=== PATIENT | female | born 1965 | race Caucasian/White ===

== ENCOUNTER → 2019-05-21 10:23 | Outpatient (BNVA) | payer MEDICAID, SELFPAY | PROVIDERS: Family Provider Family Medicine; PCP Family Medicine; Visit Provider Anesthesiology | DX: G89.29 Other chronic pain (principal); M47.817 Spondylosis without myelopathy or radiculopathy, lumbosacral region; M47.812 Spondylosis without myelopathy or radiculopathy, cervical region; F17.210 Nicotine dependence, cigarettes, uncomplicated; Z79.891 Long term (current) use of opiate analgesic | CPT/HCPCS: 99214 ==

== ENCOUNTER → 2019-07-15 10:25 | Outpatient (BNVA) | payer MEDICAID, SELFPAY | PROVIDERS: Family Provider Family Medicine; PCP Family Medicine; Visit Provider Nurse Practitioner | DX: G89.29 Other chronic pain (principal); M47.812 Spondylosis without myelopathy or radiculopathy, cervical region; M47.817 Spondylosis without myelopathy or radiculopathy, lumbosacral region; F17.200 Nicotine dependence, unspecified, uncomplicated; Z71.6 Tobacco abuse counseling; Z79.891 Long term (current) use of opiate analgesic | CPT/HCPCS: 99214 ==

== ENCOUNTER → 2019-10-13 09:12 | Outpatient (BNVA) | payer MEDICAID, SELFPAY | PROVIDERS: Family Provider Family Medicine; PCP Family Medicine; Visit Provider Anesthesiology | DX: G89.29 Other chronic pain (principal); M54.41 Lumbago with sciatica, right side; M54.42 Lumbago with sciatica, left side; M47.817 Spondylosis without myelopathy or radiculopathy, lumbosacral region; M47.812 Spondylosis without myelopathy or radiculopathy, cervical region; F17.210 Nicotine dependence, cigarettes, uncomplicated; Z79.891 Long term (current) use of opiate analgesic | CPT/HCPCS: 99214 ==

== ENCOUNTER → 2019-12-23 10:42 | Outpatient (BNVA) | payer MEDICAID, SELFPAY | PROVIDERS: Family Provider Family Medicine; PCP Family Medicine; Visit Provider Anesthesiology | DX: G89.29 Other chronic pain (principal); M54.41 Lumbago with sciatica, right side; M54.42 Lumbago with sciatica, left side; M47.817 Spondylosis without myelopathy or radiculopathy, lumbosacral region; M47.812 Spondylosis without myelopathy or radiculopathy, cervical region; F17.210 Nicotine dependence, cigarettes, uncomplicated; Z79.891 Long term (current) use of opiate analgesic | CPT/HCPCS: 99214 ==

== ENCOUNTER 2019-12-30 15:02 | Outpatient (CLI) | payer MEDICAID, SELFPAY ==
--- NOTE | 2019-12-30 16:00 | MR_ITS ---
WS: [id number] EXAM: MR cervical spin wo con* [id number] DATE OF EXAMINATION: 12/30/2019, 1617 hours COMPARISON: CT of the cervical spine from 12/07/2008 and MRI of the cervical spine from 08/14/2017 HISTORY: 54-year-old with chronic neck pain. Now has pain in both arms with numbness at night for the last 6-1 2 months.. TECHNIQUE: Sagittal T1, T2 and T2 inversion recovery; axial T2, T2 gradient and fiesta FINDINGS: Skull base is intact. Cervical and upper thoracic vertebral bodies are normal height and marrow signa l characteristics. Predens space and prevertebral soft tissue plane are normal. No abnormal inflammat ory changes are seen on inversion recovery sequencing. Cervical and upper thoracic cord are normal ca liber and signal characteristics. C2-3: Minimal desiccation of the disc otherwise normal disc level C3-4: Minimal desiccation of disc otherwise normal disc level C4-5: Minimal desiccation the disc otherwise normal disc level C5-6: Minimal desiccation of the disc otherwise normal discs level C6-7: Degenerative spondylosis changes with bilateral uncovertebral joint hypertrophy changes with sl ight bony bar formation. Slightly effaces the anterior thecal sac. No canal or neural foraminal steno sis. Uncovertebral joint hypertrophy slightly narrows both neural foramen. C7-T1: Minimal desiccation of the disc otherwise normal discs level MR/MR cervical spin wo con* [id number] IMPRESSION: Progressive degenerative spondylosis changes C5-6 level with uncovertebral join t hypertrophy and posterior bony bar formation flattening the anterior thecal s ac and narrowing the neural foramina without stenosis. Remainder of the cervica l spine examination is otherwise fairly unremarkable
== END 2019-12-30 15:03 | disposition home or self-care (01) ==
LOC: RADSHAW 15:06
PROVIDERS: PCP Family Medicine; Visit Provider Anesthesiology
DX: G89.29 Other chronic pain (principal); M47.812 Spondylosis without myelopathy or radiculopathy, cervical region
CPT/HCPCS: 72141

== ENCOUNTER → 2020-01-20 07:55 | Outpatient (BNVA) | payer MEDICAID, SELFPAY | PROVIDERS: PCP Family Medicine; Visit Provider Anesthesiology | DX: G89.29 Other chronic pain (principal); M54.42 Lumbago with sciatica, left side; M54.41 Lumbago with sciatica, right side; M47.817 Spondylosis without myelopathy or radiculopathy, lumbosacral region; M47.812 Spondylosis without myelopathy or radiculopathy, cervical region; Z87.891 Personal history of nicotine dependence; Z79.891 Long term (current) use of opiate analgesic | CPT/HCPCS: 99214 ==

== ENCOUNTER → 2020-03-21 08:25 | Outpatient (BNVA) | payer MEDICAID, SELFPAY | PROVIDERS: PCP Family Medicine; Visit Provider Anesthesiology | DX: G89.29 Other chronic pain (principal); M54.41 Lumbago with sciatica, right side; M54.42 Lumbago with sciatica, left side; M47.817 Spondylosis without myelopathy or radiculopathy, lumbosacral region; M47.812 Spondylosis without myelopathy or radiculopathy, cervical region; F17.210 Nicotine dependence, cigarettes, uncomplicated; Z79.891 Long term (current) use of opiate analgesic | CPT/HCPCS: 99214 ==

== ENCOUNTER → 2020-05-17 08:10 | Outpatient (BNVA) | payer MEDICAID, SELFPAY | PROVIDERS: PCP Family Medicine; Visit Provider Nurse Practitioner | DX: G89.29 Other chronic pain (principal); M47.16 Other spondylosis with myelopathy, lumbar region; M47.817 Spondylosis without myelopathy or radiculopathy, lumbosacral region; M50.00 Cervical disc disorder with myelopathy, unspecified cervical region; M47.812 Spondylosis without myelopathy or radiculopathy, cervical region; F17.210 Nicotine dependence, cigarettes, uncomplicated; Z79.891 Long term (current) use of opiate analgesic | CPT/HCPCS: 99213 ==

== ENCOUNTER 2020-07-12 08:29 | Outpatient (CLI) | payer MEDICAID, SELFPAY ==
--- NOTE | 2020-07-12 09:00 | IR_ITS ---
WS: [id number] MYELOGRAM CERVICAL THORACIC AND LUMBAR SPINE Fluoroscopic guided complete spine myelogram CLINICAL INFORMATION: M54.5 - Low back pain TECHNIQUE: The procedure, including risks, benefits, and complications, were discussed with the patie nt who agreed to proceed. A timeout was performed to confirm correct patient, procedure, and site. Using sterile technique, the patient was prepped and draped in the usual sterile fashion. After admin istration of local anesthesia using 1% preservative-free lidocaine and using fluoroscopic guidance, a 22-gauge spinal needle was advanced into the subarachnoid space at the L3-L4 level. Subsequently 13 cc of Omnipaque 300 was administered into the thecal sac. The needle was removed and hemostasis was a chieved. Subsequently the table was tilted down and contrast flowed freely into the cervical spine. S pot fluoroscopic images were obtained. FLUOROSCOPIC TIME: 1.[address] myelogram report for anatomic detail. IR/IR myelogram spine total [id number] IMPRESSION: Uncomplicated cervical, thoracic, lumbar spine myelogram.
[2020-07-12] MEDS: iohexol 300 mg/mL 50 mL Btl INTRATHECA (09:52)
--- NOTE | 2020-07-12 11:00 | CT_ITS ---
WS: [id number] CT THORACIC SPINE MYELOGRAM TECHNIQUE: Contrast-enhanced CT of the thoracic spine with coronal and sagittal reformatted images. CLINICAL INFORMATION: M54.6 - Pain in thoracic spine COMPARISON: MRI 018, CT 017, and CT March 15, 2016. DLP: 1046.[address] scans at [facility] use at least one of these dose optimization techniques: automat ed exposure control; mA and/or kV adjustment per patient size (includes targeted exams where dose is matched to clinical indication); or iterative reconstruction. FINDINGS: Mild thoracic kyphosis. Mild spondylitic changes thoracic spine. No acute compression fractures. Mild degenerative disc disease in the mid thoracic spine more prominent at T4-T8. Mild chronic anterior w edging at T4, T5, T6 similar to previous. No significant central canal stenosis. Mild facet arthropat hy in the lower thoracic spine. Tiny central disc protrusion the mid thoracic spine at T7-8 with slight effacement of ventral thecal sac and slight contact of the thoracic cord eccentric to the right.. No significant central canal brianna nosis. Slight atelectasis in the lung bases. Adrenal glands are normal. Mild aortic calcification. Normal ca liber visualized thoracic aorta. Calcified mediastinal and hilar lymph nodes. CT/CT thoracic spine w con [id number] IMPRESSION: 1. Mild thoracic kyphosis. No acute compression fractures. 2. Mild chronic anterior wedging in the mid thoracic spine similar to the prio r studies more prominent at T4-T6. 3. Shallow central protrusion T7-T8 with slight effacement of ventral thecal s ac. Slight contact of the thoracic cord eccentric to the right. No significant central canal stenosis. 4. Mild facet arthropathy lower thoracic spine. 5. No other significant findings.
--- NOTE | 2020-07-12 11:00 | CT_ITS ---
WS: [id number] CT LUMBAR SPINE MYELOGRAM TECHNIQUE: CT myelogram of the lumbar spine with coronal and sagittal reformatted images. CLINICAL INFORMATION: M47.16 - Other spondylosis with myelopathy, lumbar region COMPARISON: CT 05/2017, MRI . DLP: 1878.[address] scans at [facility] use at least one of these dose optimization techniques: automat ed exposure control; mA and/or kV adjustment per patient size (includes targeted exams where dose is matched to clinical indication); or iterative reconstruction. FINDINGS: Mild lumbar curve convex left. No acute compression fractures. No high-grade central canal stenosis. Vacuum disc phenomenon L5-S1. L1-L2: Normal. L2-L3: Normal L3-L4: Mild annular bulging with slight effacement of ventral thecal sac. Left eccentric disc bulging with mild left foraminal narrowing. Slight narrowing of the subarticular recess bilaterally. Mild fa cet arthropathy. L4-L5: Mild annular bulging eccentric to the left. Slight narrowing of the left subarticular recess. Mild left foraminal narrowing. Right foramen is patent. Moderate facet arthropathy. L5-S1: Mild disc osteophytic ridging. Slight effacement of ventral thecal sac. Foramen are patent. Adrenal glands are normal. Aortic calcification. CT/CT lumbar spine w con [id number] IMPRESSION: 1. Mild lumbar curve. No acute compression. No high-grade central canal stenos is. 2. Mild annular bulging eccentric to the left with mild narrowing of the subar ticular recess bilaterally. Mild left L3-4 foraminal narrowing. 3. Left eccentric disc bulging L4-5 with mild left foraminal narrowing and enc roachment on the exiting left L4 nerve root. Slight impingement traversing left L5 nerve root in the subarticular recess. 4. Moderate facet arthropathy L3-L4 and L4-L5, worse L4-5.
--- NOTE | 2020-07-12 11:00 | CT_ITS ---
WS: [id number] CT CERVICAL MYELOGRAM TECHNIQUE: CT of the cervical spine coronal and sagittal reformatted images post intrathecal administ ration of contrast. CLINICAL INFORMATION: M50.00 - Cervical disc disorder with myelopathy, unspecified cervical region COMPARISON: Multiple prior CT and MRI studies including December 30, 2019, August 2017, August 2016, 2015, and November 2008. DLP: 1476.[address] scans at [facility] use at least one of these dose optimization techniques: automat ed exposure control; mA and/or kV adjustment per patient size (includes targeted exams where dose is matched to clinical indication); or iterative reconstruction. FINDINGS: Spot fluoroscopic images demonstrate normal C1-2 articulation. Mild spondylitic changes cervical spin e with trace retrolisthesis C5 on C6. Normal prevertebral soft tissues. No instability on flexion-ext ension in the cervical spine. Mild thoracic curve convex left. Mild thoracic kyphosis. Minimal chronic anterior wedging in the mid thoracic spine. Mild lumbar curve convex right. 5 nonrib-bearing lumbar vertebral bodies. Normal lumbar alignment on the neutral view. No instability on flexion-extension. C2-C3: No significant disc bulging. Spinal canal and foramen are patent. C3-C4: No significant disc bulging. Spinal canal and foramen are patent. C4-C5: Mild disc osteophytic ridging. Slight effacement of ventral thecal sac. Mild facet arthropathy . Mild left and no significant right foraminal narrowing. Spinal canal is patent. C5-C6: Mild disc osteophytic ridging. Spinal canal is patent. Mild left and no significant right fora juan josé narrowing. Mild facet arthropathy. C6-C7: Disc osteophyte complex with a small central disc osteophyte protrusion. Slight contact of the cervical cord with mild central canal stenosis. Mild bilateral bony foraminal narrowing. Mild facet arthropathy. C7-T1: No significant disc bulging. Spinal canal and foramen are patent. Visualized posterior fossa structures: Normal. CT/CT cervical spine w con [id number] IMPRESSION: 1. Mild spondylitic changes cervical spine with straightening of the normal ce rvical lordosis. 2. Small central disc osteophyte protrusion C6-C7 with slight contact of the c ervical cord and mild central canal stenosis. This is similar in appearance to the prior MRI December 2019. 3. Mild bony foraminal narrowing more prominent at left C4-C5, left C5-C6 and bilateral C6-7.
== END 2020-07-12 08:30 | disposition home or self-care (01) ==
LOC: RADWPI 08:31
PROVIDERS: PCP Family Medicine; Visit Provider Nurse Practitioner
DX: M50.00 Cervical disc disorder with myelopathy, unspecified cervical region (principal); M47.16 Other spondylosis with myelopathy, lumbar region; M40.294 Other kyphosis, thoracic region; M47.814 Spondylosis without myelopathy or radiculopathy, thoracic region; M51.24 Other intervertebral disc displacement, thoracic region; M48.54XA Collapsed vertebra, not elsewhere classified, thoracic region, initial encounter for fracture; M47.816 Spondylosis without myelopathy or radiculopathy, lumbar region; M51.26 Other intervertebral disc displacement, lumbar region; M25.78 Osteophyte, vertebrae; M50.223 Other cervical disc displacement at C6-C7 level
CPT/HCPCS: 62305; 72040; 72120; 72126; 72129; 72132; Q9967

== ENCOUNTER → 2020-07-14 08:40 | Outpatient (BNVA) | payer MEDICAID, SELFPAY | PROVIDERS: PCP Family Medicine; Visit Provider Nurse Practitioner | DX: G89.29 Other chronic pain (principal); M50.00 Cervical disc disorder with myelopathy, unspecified cervical region; M47.816 Spondylosis without myelopathy or radiculopathy, lumbar region; M47.16 Other spondylosis with myelopathy, lumbar region; M54.6 Pain in thoracic spine; M47.817 Spondylosis without myelopathy or radiculopathy, lumbosacral region; M47.812 Spondylosis without myelopathy or radiculopathy, cervical region; F17.210 Nicotine dependence, cigarettes, uncomplicated; Z79.891 Long term (current) use of opiate analgesic | CPT/HCPCS: 99215 ==

== ENCOUNTER → 2020-07-31 10:49 | Outpatient (BNVA) | payer MEDICAID, SELFPAY | PROVIDERS: PCP Family Medicine; Visit Provider Surgery | DX: Z01.812 Encounter for preprocedural laboratory examination (principal); Z20.828 Contact with and (suspected) exposure to other viral communicable diseases | CPT/HCPCS: 87635 ==

== ENCOUNTER 2020-08-03 06:48 | Day surgery (SDC) | payer MEDICAID, SELFPAY ==
[2020-08-01 12:13] VITALS: BMI 34.7
[2020-08-03] MEDS: sodium chloride 0.9% 1,000 ML 30 ML IV (07:34)
--- NOTE | 2020-08-03 07:42 | ANES.PREANE2 ---
Pre-Anesthetic Assessment Pre-Anesthetic Assessment: Height/Weight: Height 1.6 m Weight 88.904 kg Proposed Procedure: Operation Date: 08/03/20 08:00 Proposed Procedures p Colonoscopy 95456 34598 R19.8 Z86.010 Z83.71 K21.9 R10.13 K44.9 R12(Not Applicable) - Thom Gonzales MD s EGD 18221 32310 R19.8 Z86.010 Z83.71 K21.9 R10.13 K44.9 R12(Not Applicable) - Thom Gonzales MD Last intake: Intake Last Liquid Date 08/02/20 Last Liquid Time 19:00 Last Solid Date 08/01/20 Last Solid Time 21:00 Social: Social History: Tobacco and No alcohol Packs per day: 4 cigs weekly Exam: Pre-Anes Outpt Exam: alert, oriented x 3, clear to auscultation bilaterally and regular rate & rhythm Airway: Submandibular: WNL Cervical ROM: WNL MP: 2 Pulmonary: Pulmonary: COPD and Sleep apnea Comments: does not use her cpap CV/HEM: CV/HEM: Angina (Stable) and HTN : Comments: kidney cyst hx kidney stones GI: GI: GERD and Hiatus hernia Metabolic: Metabolic: Hyperlipidemia and Morbid obesity Musc/skel: Musc/skel: Fibromyalgia, Lower Back Pain, OA/DJD, Scoliosis and Weakness Neuropsych: Neuropsych: Anxiety, Depression and Neuropathy Anesthetic Plan: ASA status: 3 Anesthesia: Anesthesia Evaluation and MAC Risk of > 500 ml blood loss (7ml/kg in children): No Meds/Allergies Current Medications: Current Medications Generic Name Dose Route Start Last Admin Trade Name Freq PRN Reason Stop Dose Admin Sodium Chloride 1,000 mls @ 30 ml s/hr 08/03/20 07:15 08/03/20 07:34 Sodium Chloride 0.9% IV 30 mls/hr .Q24H KASIA Administration PFSH Anesthesia PFSH: Medical History (Updated 07/14/20 @ 09:45 by CHAI Rouse) Current every day smoker Encounter for long-term use of opiate analgesic Lumbosacral spondylosis without myelopathy Neck pain Opioid contract exists Spondylosis without myelopathy or radiculopathy, cervical region Surgical History H/O tubal ligation History of appendectomy History of hysterectomy Family History Other CAD (coronary artery disease) Cancer Diabetes Social History Smoking and tobacco status: current some day smoker Second hand smoke exposure: No Alcohol intake: former History of recent travel: No Data Anesthesia Cardiac Studies: No Data to Display
--- NOTE | 2020-08-03 08:03 | P.HPUD_ITS ---
Surgery/Procedure H&P Update DATE OF PROCEDURE: August 03, 2020 DATE H&P PERFORMED: 07/25/20 H&P UPDATE INFORMATION: No changes to prior documentation PLANNED PROCEDURE: Operation Date: 08/03/20 08:00 Proposed Procedures p Colonoscopy 77140 37275 R19.8 Z86.010 Z83.71 K21.9 R10.13 K44.9 R12(Not Applicable) - Thom Gonzales MD s EGD 08279 04941 R19.8 Z86.010 Z83.71 K21.9 R10.13 K44.9 R12(Not Applicable) - Thom Gonzales MD
--- NOTE | 2020-08-03 08:03 | W.PM.OPSUD ---
Surgery/Procedure H&P Update DATE OF PROCEDURE: August 03, 2020 DATE H&P PERFORMED: 07/25/20 H&P UPDATE INFORMATION: No changes to prior documentation PLANNED PROCEDURE: Operation Date: 08/03/20 08:00 Proposed Procedures p Colonoscopy 45768 83461 R19.8 Z86.010 Z83.71 K21.9 R10.13 K44.9 R12(Not Applicable) - Thom Gonzales MD s EGD 46609 50266 R19.8 Z86.010 Z83.71 K21.9 R10.13 K44.9 R12(Not Applicable) - Thom Gonzales MD
[2020-08-03 08:32] VITALS: BP 142/82; PULSE 80; RESP 16; TEMP 36.8; O2SAT 98
[2020-08-03 08:53] VITALS: BP 167/95; PULSE 62; RESP 18; O2SAT 100
--- NOTE | 2020-08-03 20:45 | ANE.PACU2 ---
Inpatient post-anesthesia follow up: Airway intact: Yes Vital signs: Temperature 98.2 F Pulse Rate 62 Respiratory Rate 18 Blood Pressure 167/95 Pulse Oximetry 100 Oxygen Delivery Me thod Room Air Oxygen Flow Rate Fraction of Inspir ed Oxygen Hydration adequate: Yes Nausea and vomiting: No Pain level: 1 Mental status: Baseline
[2020-08-04 13:48] LABS: H. Pylori / CLO Test Negative
== END 2020-08-03 09:07 | disposition home or self-care (01) ==
PROVIDERS: PCP Family Medicine; Visit Provider Surgery
PROC: 0DJD8ZZ Inspection of Lower Intestinal Tract, Via Natural or Artificial Opening Endoscopic (ICD-10-PCS; CPT 45378; principal; 2020-08-03 08:00)
PROC: 0DJ08ZZ Inspection of Upper Intestinal Tract, Via Natural or Artificial Opening Endoscopic (ICD-10-PCS; CPT 43235; 2020-08-03 08:00)
DX: K64.8 Other hemorrhoids (principal); K44.9 Diaphragmatic hernia without obstruction or gangrene; K29.80 Duodenitis without bleeding; K92.1 Melena; Z80.0 Family history of malignant neoplasm of digestive organs; Z86.010 Personal history of colon polyps; K21.9 Gastro-esophageal reflux disease without esophagitis; M19.90 Unspecified osteoarthritis, unspecified site; J44.9 Chronic obstructive pulmonary disease, unspecified; M79.7 Fibromyalgia; I10 Essential (primary) hypertension; M81.0 Age-related osteoporosis without current pathological fracture; G47.30 Sleep apnea, unspecified; F17.210 Nicotine dependence, cigarettes, uncomplicated; Z83.71 Family history of colonic polyps
CPT/HCPCS: 12345; 43239; 45378; 87077; 96360; J2704; J3490; J7030

== ENCOUNTER → 2020-08-07 12:43 | Outpatient (BNVA) | payer MEDICAID, SELFPAY | PROVIDERS: PCP Family Medicine; Visit Provider Anesthesiology Pain Medicine | DX: M47.816 Spondylosis without myelopathy or radiculopathy, lumbar region (principal); M54.6 Pain in thoracic spine; Z79.891 Long term (current) use of opiate analgesic | CPT/HCPCS: 64493; 64494; 64495; J3490 ==

== ENCOUNTER → 2020-08-11 08:03 | Outpatient (BNVA) | payer MEDICAID, SELFPAY | PROVIDERS: PCP Family Medicine; Visit Provider Nurse Practitioner | DX: G89.29 Other chronic pain (principal); M47.16 Other spondylosis with myelopathy, lumbar region; M47.816 Spondylosis without myelopathy or radiculopathy, lumbar region; M54.6 Pain in thoracic spine; M47.817 Spondylosis without myelopathy or radiculopathy, lumbosacral region; M50.00 Cervical disc disorder with myelopathy, unspecified cervical region; M47.812 Spondylosis without myelopathy or radiculopathy, cervical region; F17.210 Nicotine dependence, cigarettes, uncomplicated; Z79.891 Long term (current) use of opiate analgesic; Z71.6 Tobacco abuse counseling | CPT/HCPCS: 99214 ==

== ENCOUNTER → 2020-08-21 14:21 | Outpatient (BNVA) | payer MEDICAID, SELFPAY | PROVIDERS: PCP Family Medicine; Visit Provider Anesthesiology Pain Medicine | DX: M47.816 Spondylosis without myelopathy or radiculopathy, lumbar region (principal); M54.6 Pain in thoracic spine; F17.210 Nicotine dependence, cigarettes, uncomplicated; Z79.891 Long term (current) use of opiate analgesic | CPT/HCPCS: 64635; 64636; J1030 ==

== ENCOUNTER → 2020-10-17 08:44 | Outpatient (BNVA) | payer MEDICAID, SELFPAY | PROVIDERS: PCP Family Medicine; Visit Provider Nurse Practitioner | DX: G89.29 Other chronic pain (principal); M47.16 Other spondylosis with myelopathy, lumbar region; M47.816 Spondylosis without myelopathy or radiculopathy, lumbar region; M47.817 Spondylosis without myelopathy or radiculopathy, lumbosacral region; M54.6 Pain in thoracic spine; M50.00 Cervical disc disorder with myelopathy, unspecified cervical region; M47.812 Spondylosis without myelopathy or radiculopathy, cervical region; F17.210 Nicotine dependence, cigarettes, uncomplicated; Z79.891 Long term (current) use of opiate analgesic; Z71.6 Tobacco abuse counseling | CPT/HCPCS: 99214 ==

== ENCOUNTER → 2020-11-14 08:54 | Outpatient (BNVA) | payer MEDICAID, SELFPAY | PROVIDERS: PCP Family Medicine; Visit Provider Nurse Practitioner | DX: G89.29 Other chronic pain (principal); M47.16 Other spondylosis with myelopathy, lumbar region; M47.816 Spondylosis without myelopathy or radiculopathy, lumbar region; M54.6 Pain in thoracic spine; M47.817 Spondylosis without myelopathy or radiculopathy, lumbosacral region; M50.00 Cervical disc disorder with myelopathy, unspecified cervical region; M47.812 Spondylosis without myelopathy or radiculopathy, cervical region; F17.210 Nicotine dependence, cigarettes, uncomplicated; Z79.891 Long term (current) use of opiate analgesic; Z71.6 Tobacco abuse counseling | CPT/HCPCS: 99213; 99214; 99406 ==

== ENCOUNTER → 2021-01-16 08:52 | Outpatient (BNVA) | payer MEDICAID, SELFPAY | PROVIDERS: PCP Family Medicine; Visit Provider Nurse Practitioner | DX: G89.29 Other chronic pain (principal); M47.16 Other spondylosis with myelopathy, lumbar region; M47.816 Spondylosis without myelopathy or radiculopathy, lumbar region; M47.817 Spondylosis without myelopathy or radiculopathy, lumbosacral region; M50.00 Cervical disc disorder with myelopathy, unspecified cervical region; M50.90 Cervical disc disorder, unspecified, unspecified cervical region; M47.812 Spondylosis without myelopathy or radiculopathy, cervical region; M54.6 Pain in thoracic spine; F17.200 Nicotine dependence, unspecified, uncomplicated; Z79.891 Long term (current) use of opiate analgesic; Z71.6 Tobacco abuse counseling | CPT/HCPCS: 99214 ==

== ENCOUNTER 2021-02-14 08:23 | Outpatient (CLI) | payer MEDICAID, SELFPAY ==
--- NOTE | 2021-02-14 08:00 | MR_ITS ---
WS: [id number] MRI CERVICAL SPINE NONCONTRAST HISTORY: M50.90 - Cervical disc disorder, unspecified, unspecified... COMPARISON: 12/30/2019 Technique: Multiplanar, multisequence noncontrast imaging of the cervical spine. Normal cervical alignment with no compression fracture or significant disc space narrowing. Signal within the cervical cord is normal. Visualized posterior fossa is unremarkable. Craniocervical junction, C1 and C2 relationship, odontoid process and soft tissues are normal. C2-C3: Normal. C3-C4: Small LEFT foraminal osteophyte without significant stenosis. C4-C5: Minimal hypertrophic osteophytes in the foramen with no stenosis. C5-C6: Normal. C6-C7: Mild annular disc bulging with mild hypertrophic osteophyte formation. There is mild encroachm ent upon the ventral thecal sac and mild narrowing of the foramen. Similar to the prior study with no change. C7-T1: Normal. Paraspinal soft tissue are normal. MR/MR cervical spin wo con* [id number] IMPRESSION: 1. Mild central and bilateral foraminal stenosis at C6-7 due to mild disc and hypertrophic bone formation. Similar to the prior examination with no progressi on or severe stenosis. 2. Small LEFT foraminal osteophytes at C3-4 and C4-5 without stenosis.
--- NOTE | 2021-02-14 08:45 | MR_ITS ---
WS: [id number] MRI LUMBAR SPINE NONCONTRAST HISTORY: M47.16 - Other spondylosis with myelopathy, lumbar region COMPARISON: 08/14/2017 TECHNIQUE: Sagittal and axial multisequence imaging is submitted. Normal lumbar alignment with no compression fractures or marrow edema. Very minimal disc desiccation but the heights are preserved. No fractures. Conus terminates normally at L1-2 disc level. L1-L2: Normal. L2-L3: No stenosis. Minimal ligamentum flavum hypertrophy. Small annular fissure in the far lateral L EFT disc. L3-L4: Mild annular disc bulge is slightly asymmetric to the LEFT. Similar to the prior study. There is mild bilateral facet joint encroachment into the lateral recess and foramen. No significant stenos is. No nerve root contact is evident. Mild facet arthritis. L4-L5: Mild annular disc bulging with a LEFT foraminal fissure. Mild ligamentum flavum hypertrophy an d facet arthritis. Disc slightly contacts the traversing L5 nerve roots, greatest on the LEFT but no displacement. Similar to the prior study. Mild bilateral foraminal narrowing predominantly due to fac et arthritis. No significant stenosis or progression. L5-S1: Mild annular disc bulging. No stenosis. Very mild facet joint arthritis. MR/MR lumbar spine wo con* [id number] IMPRESSION: 1. No high-grade central or foraminal stenosis or disc protrusions. 2. Mild bilateral facet joint arthritis from L3-4 to L5-S1 with only mild prog ression since the prior study. 3. Mild asymmetric disc bulging to the LEFT at L3-4 with mild encroachment int o the LEFT foramen. 4. Disc bulging slightly contacts the traversing L5 nerve roots without stenos is or displacement. 5. Mild bilateral foraminal narrowing at L4-5.
== END 2021-02-14 08:24 | disposition home or self-care (01) ==
LOC: RADSHAW 08:27
PROVIDERS: PCP Family Medicine; Visit Provider Nurse Practitioner
DX: M50.90 Cervical disc disorder, unspecified, unspecified cervical region (principal); M47.16 Other spondylosis with myelopathy, lumbar region; M47.817 Spondylosis without myelopathy or radiculopathy, lumbosacral region; M51.26 Other intervertebral disc displacement, lumbar region
CPT/HCPCS: 72141; 72148

== ENCOUNTER → 2021-03-16 08:44 | Outpatient (BNVA) | payer MEDICAID, SELFPAY | PROVIDERS: PCP Family Medicine; Visit Provider Anesthesiology | DX: G89.29 Other chronic pain (principal); M50.00 Cervical disc disorder with myelopathy, unspecified cervical region; M47.812 Spondylosis without myelopathy or radiculopathy, cervical region; M47.16 Other spondylosis with myelopathy, lumbar region; M47.816 Spondylosis without myelopathy or radiculopathy, lumbar region; M54.6 Pain in thoracic spine; M47.817 Spondylosis without myelopathy or radiculopathy, lumbosacral region; Z79.891 Long term (current) use of opiate analgesic | CPT/HCPCS: 99213 ==

== ENCOUNTER → 2021-05-16 09:32 | Outpatient (BNVA) | payer MEDICAID, SELFPAY | PROVIDERS: PCP Family Medicine; Visit Provider Anesthesiology | DX: G89.29 Other chronic pain (principal); M47.16 Other spondylosis with myelopathy, lumbar region; M47.816 Spondylosis without myelopathy or radiculopathy, lumbar region; M54.6 Pain in thoracic spine; M47.817 Spondylosis without myelopathy or radiculopathy, lumbosacral region; M50.00 Cervical disc disorder with myelopathy, unspecified cervical region; M47.812 Spondylosis without myelopathy or radiculopathy, cervical region; Z79.891 Long term (current) use of opiate analgesic; Z87.891 Personal history of nicotine dependence | CPT/HCPCS: 99214 ==

== ENCOUNTER 2021-09-04 12:48 | Outpatient (CLI) | payer MEDICAID, SELFPAY ==
--- NOTE | 2021-09-04 13:07 | USCV_ITS ---
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 Dr Lily Field MD [facility] (Electronically Signed) Final Date: 09 Sep 2021 21:07 S
== END 2021-09-04 12:49 | disposition home or self-care (01) ==
LOC: RAD 12:51
PROVIDERS: PCP Family Medicine; Visit Provider Family Medicine
DX: I73.9 Peripheral vascular disease, unspecified (principal)
CPT/HCPCS: 93922

== ENCOUNTER 2021-12-03 08:00 | Outpatient (CLI) | payer MEDICAID, SELFPAY ==
--- NOTE | 2021-12-03 | MR_ITS ---
WS: [id number] MRI LUMBAR SPINE NONCONTRAST TECHNIQUE: Sagittal T1, T2 and STIR imaging. Axial T1 and T2 imaging. CLINICAL INFORMATION: RADICULAR LOW BACK PAIN COMPARISON: MRI February 14, 2021 FINDINGS: Mild lumbar curve. No acute compression. No high-grade central canal stenosis. L1-L2: Normal. L2-L3: Mild annular bulging. Spinal canal and foramen are patent. L3-L4: Mild annular bulging. Narrowing of the subarticular recess bilaterally. Mild facet arthropath y. Tiny annular fissure. Mild LEFT foraminal narrowing. Mild facet arthropathy. L4-L5: Mild annular bulging. Slight narrowing of the subarticular recess bilaterally. Small annular f issures at this level. Mild bilateral foraminal narrowing. Mild facet arthropathy. L5-S1: Mild annular bulging with osteophytic ridging. Mild facet arthropathy. Spinal canal and forame n are patent. Small bilateral renal cysts. MR/MR lumbar spine wo con* [id number] IMPRESSION: Overall no significant changes compared to previous. 1. Mild lumbar curve. No acute compression. No high-grade central canal stenos is. 2. Mild narrowing subarticular recess bilaterally L3-L4 and L4-L5 unchanged co mpared to previous. 3. Mild facet arthropathy L3-L4 L4-L5. 4. Mild LEFT L3-L4 foraminal narrowing unchanged. 5. Mild bilateral L4-L5 bony foraminal narrowing unchanged.
== END 2021-12-03 08:01 | disposition home or self-care (01) ==
PROVIDERS: PCP Family Medicine; Visit Provider Family Medicine
DX: M54.16 Radiculopathy, lumbar region (principal); M47.816 Spondylosis without myelopathy or radiculopathy, lumbar region
CPT/HCPCS: 72148

== ENCOUNTER → 2021-12-19 12:18 | Outpatient (BNVA) | payer MEDICAID, SELFPAY | PROVIDERS: PCP Family Medicine; Visit Provider Internal Medicine Cardiovascular Disease | DX: R07.9 Chest pain, unspecified (principal); I10 Essential (primary) hypertension; M19.90 Unspecified osteoarthritis, unspecified site; M47.817 Spondylosis without myelopathy or radiculopathy, lumbosacral region; M47.812 Spondylosis without myelopathy or radiculopathy, cervical region; Z79.891 Long term (current) use of opiate analgesic; F17.210 Nicotine dependence, cigarettes, uncomplicated | CPT/HCPCS: 93005; 99203; 99204 ==

== ENCOUNTER 2022-02-21 07:19 | Outpatient (CLI) | payer MEDICAID, SELFPAY ==
--- NOTE | 2022-02-21 07:57 | NMCV_ITS ---
NM kedar perf SPECT r/s* [id number] Mehnaz Martínez Age: 56 Gender: F : 1965 Exam Date: 02/21/2022 07:57 Ordering Phys: Tiffanie Richards MD ([email or web address]) Technologist: JACINDA Nayak Exam Location: [facility] Indications: CHEST PAIN STRESS TEST Please see separate stress test report in [facility] for full findings IMAGE PROTOCOL Rest/Stress 1 Lexiscan Day Radiopharmaceutical Dose (mCi) Administration Site Administered by Rest: Tc-99m 10.7 IV JACINDA Bailey Sestamibi Stress:Tc-99m 32.8 IV JACINDA Bailey Sestamibi Rest: 21-Feb-2022 60 Discovery 630 Stress: 21-Feb-2022 30 Discovery 630 0.4mg Lexiscan. Images obtained in supine and prone position. SPECT RESULTS Technical Quality: Excellent Raw Data Analysis: Normal Image Corrections: No attenuation or motion correction applied Summed Stress Score: 0 Summed Rest Score: 0 Summed Difference Score: 0 PERFUSION FINDINGS SPECT images demonstrate homogeneous tracer distribution throughout the myocardium. FUNCTIONAL RESULTS (calculated via Gated SPECT) Stress Image LV EF (%): 71 Stress EDV (mL):79 TID: 0.86 Stress ESV (mL):23 FUNCTIONAL FINDINGS: The left ventricle is normal in size. Transient Ischemia Dilatation of 0.86. There is normal left ventricular systolic function. The left ventricular ejection fraction is normal with a value of 71%. There is normal left ventricular wall thickening. Normal end-diastolic and end-systolic volumes. IMPRESSIONS 1. Myocardial perfusion imaging is normal. 2. Overall left ventricular systolic function is normal without regional wall motion abnormalities, LVEF=71%. 3. EKG portion of the study will be reported separately. Tiffanie Richards MD (Electronically Signed) Final Date: 25 February 2022 13:45 S
[2022-02-21 08:01] VITALS: BMI 34.7
[2022-02-21] MEDS: regadenoson 0.4 Mg/5 ml Syringe IVP (09:50)
[2022-02-21] MEDS: ondansetron 2 mg/ML SDV 2 mL 4 MG IVP (10:06)
== END 2022-02-21 07:20 | disposition home or self-care (01) ==
LOC: CDL 07:21
PROVIDERS: PCP Family Medicine; Visit Provider Internal Medicine Cardiovascular Disease
DX: R07.9 Chest pain, unspecified (principal)
CPT/HCPCS: 78452; A9500; J2405; J2785

== ENCOUNTER 2022-04-15 11:39 | Emergency (ER) | payer MEDICAID, SELFPAY ==
[2022-04-15 11:48] VITALS: BP 128/80; PULSE 97; RESP 16; TEMP 36.5; O2SAT 100
--- NOTE | 2022-04-15 12:34 | XR_ITS ---
WS: [id number] EXAMINATION: XR chest 1V portable [id number] REASON FOR EXAM: sob COMPARISON: None available. ORDER DATE: 04/15/2022 1:08 PM TECHNIQUE: A single, portable frontal chest x-ray was obtained. X-RAY FINDINGS: The lungs are clear. Pleural spaces are clear. No pleural effusions or pneumothorax. Cardiomediastinal silhouette is normal. No evidence for pulmonary edema. Soft tissue and osseous structures are unremarkable. No tubes or lines are present. XR/XR chest 1V portable [id number] IMPRESSION: Unremarkable frontal portable chest x-ray.
--- NOTE | 2022-04-15 14:05 | W.ED.SOB ---
HPI - SOB/Dyspnea General: Chief Complaint: Shortness of Breath/Dyspnea Stated Complaint: SOB Time Seen by Provider: 04/15/22 14:05 History of Present Illness: HPI Narrative: Ms. Martínez is a 56-year-old lady with significant past medical history of hypertension, hyperlipidemia, chronic pain, COPD presenting to the emergency department due to cough and shortness of breath. She reports onset of symptoms approximately 2 weeks ago and was initially previously treated for COPD exacerbation with steroids and doxycycline though felt improved. Over the past 4 days, since completing the antibiotics, she has worsened. Endorses shortness of breath, cough, congestion, generalized malaise, sweats, and subjective fevers and chills. Intensity symptoms is moderate. Course has persisted. Worse with exertion. No other specific changes in health, exacerbating, or alleviating factors identified. Onset (ago): week(s) Timing: progressively worsening Severity: moderate Exacerbating factors: exertion Known history of: COPD Associated symptoms: Reports chest congestion, cough and fever(s) Review of Systems General: Reports: 10 or more systems reviewed and unremarkable except in HPI and below Const: Reports: fever(s) Resp: Reports: chest congestion PFSH ED PFSH: Medical History DJD (degenerative joint disease) Encounter for long-term use of opiate analgesic Fibromyalgia GERD (gastroesophageal reflux disease) HTN (hypertension) Lumbosacral spondylosis without myelopathy Neck pain Opioid contract exists PTSD (post-traumatic stress disorder) Spondylosis without myelopathy or radiculopathy, cervical region Surgical History H/O tubal ligation History of appendectomy History of hysterectomy S/P nasal polypectomy Family History Father , [place] 33 y/o Myocardial infarct Stroke Hypertension Brother Myocardial infarct S/P CABG x 3 Diabetes Family/Other Murmur, cardiac Hypertension Diabetes Other CAD (coronary artery disease) Cancer Social History Smoking and tobacco status: current some day smoker cigarettes [ Other cigarette details: 2 cigs per day] Second hand smoke exposure: No Alcohol intake: former History of recent travel: No Physical Exam Const: COMMON NORMALS: alert GENERAL APPEARANCE: cooperative and well developed HENMT: COMMON NORMALS: normocephalic and atraumatic HEAD & SCALP: normocephalic and atraumatic THROAT: posterior oropharynx normal Eye: COMMON NORMALS: conjunctivae normal CONJUNCTIVA: Yes conjunctivae normal SCLERA: sclerae normal Neck/C-Spine: COMMON NORMALS: supple GENERAL: Yes trachea midline Resp: EFFORT & INSPECTION: Yes able to speak in complete sentences AUSCULTATION: wheezes and diminished lung sounds Cardio: COMMON NORMALS: regular rate and regular rhythm RATE: regular rate RHYTHM: regular rhythm GI: COMMON NORMALS: Soft to palpation PALPATION: Yes Soft to palpation and No Tenderness to palpation present (GI) PERCUSSION: normal to percussion Extremity: GENERAL: Yes normal exam except as noted and No edema Neuro: COMMON NORMALS: moves all extremities SENSORIUM/ORIENTATION: Yes alert and No Orientation impaired Psych: COMMON NORMALS: mental status grossly normal and Normal thought process present THOUGHT PROCESS: Normal thought process present Course Vital Signs: Vital signs: Vital Signs Temperature 97.7 F 04/15/22 11:48 Pulse Rate 94 04/15/22 18:21 Respiratory Rate 16 04/15/22 18:21 Blood Pressure 136/92 04/15/22 18:21 Pulse Oximetry 98 04/15/22 18:21 Oxygen Delivery Me thod 04/15/22 17:34 MDM - SOB/Dyspnea Medical Decision Making 56-year-old lady presenting with shortness of breath and cough. Exam as above, not requiring supplemental oxygen. EKG shows sinus rhythm with nonspecific ST segment abnormalities, no STEMI. No significant hematologic abnormalities on laboratory studies, electrolytes normal with minimal decrease in bicarb and anion gap increase. 2-hour delta troponin is negative. D-dimer elevated. Chest x-ray with no lobar consolidation or pneumothorax. CTA chest without evidence of pulmonary embolism. Incidental findings discussed. Patient feels improved with RT treatment. Most likely etiology of patient's symptoms is exacerbation of underlying COPD. The results of ED evaluation were discussed with the patient including prescriptions and/or symptomatic cares (if applicable) including appropriate and responsible use, followup plan, and return precautions. The patient verbalized understanding and felt safe for discharge. Medical Records I reviewed the patient's medical records. Lab Data I reviewed the patient's lab results. 04/15/22 14:25 04/15/22 14:25 Labs/Radiology: Radiology Impressions Chest X-Ray 04/15/22 12:34 IMPRESSION: Unremarkable frontal portable chest x-ray. Chest CTA 04/15/22 16:45 IMPRESSION: No evidence of pulmonary embolism. Laboratory Results WBC 7.6 10^3/uL (4.0-10.0) 04/15/22 14:25 RBC 4.72 10^6/uL (4.1-5.3) 04/15/22 14:25 Hgb 14.3 g/dL (11.5-15.3) 04/15/22 14:25 Hct 43.5 % (37.0-47.0) 04/15/22 14:25 MCV 92.2 fl (81-99) 04/15/22 14:25 MCH 30.3 pg (28.0-34.0) 04/15/22 14:25 MCHC 32.9 g/dL (30.0-36.0) 04/15/22 14:25 RDW 13.4 % (12.1-15.1) 04/15/22 14:25 Plt Count 325 10^3/cmm (130-400) 04/15/22 14:25 MPV 9.7 fL (7.4-10.4) 04/15/22 14:25 Neut % (Auto) 52.3 % 04/15/22 14:25 Lymph % (Auto) 35.1 % 04/15/22 14:25 Walker % (Auto) 11.1 % 04/15/22 14:25 Eos % (Auto) 0.3 % 04/15/22 14:25 Baso % (Auto) 0.5 % 04/15/22 14:25 Neut # (Auto) 3.95 10^3/uL (1.8-7.7) 04/15/22 14:25 Lymph # (Auto) 2.7 10^3/uL (0.8-4.8) 04/15/22 14:25 Walker # (Auto) 0.8 10^3/uL (0.2-0.9) 04/15/22 14:25 Eos # (Auto) 0.0 10^3/uL (0.0-0.8) 04/15/22 14:25 Baso # (Auto) 0.0 10^3/uL (0.0-0.1) 04/15/22 14:25 Nucleated RBC % (auto) 0 % 04/15/22 14:25 Nucleated RBCs # 0.0 /100WBC 04/15/22 14:25 D-Dimer 0.85 ug/mIFEU (0-0.59) H 04/15/22 14:25 Sodium 136 mmol/L (136-145) 04/15/22 14:25 Potassium 3.8 mmol/L (3.5-5.1) 04/15/22 14:25 Chloride 100 mmol/L (98-107) 04/15/22 14:25 Carbon Dioxide 20 mmol/L (22-29) L 04/15/22 14:25 Anion Gap 19.8 (5-19) H 04/15/22 14:25 BUN 15 mg/dL (6-20) 04/15/22 14:25 Creatinine 0.8 mg/dL (0.5-0.9) 04/15/22 14:25 GFR Calculation 73.9 mL/min (90-130) L 04/15/22 14:25 Glucose 93 mg/dL (65-115) 04/15/22 14:25 Calculated Osmolality 283 mOsm/kg (285-295) L 04/15/22 14:25 Calcium 9.6 mg/dL (8.5-10.5) 04/15/22 14:25 Total Bilirubin 0.3 mg/dL (0.15-1.2) 04/15/22 14:25 AST 22 U/L (0-32) 04/15/22 14:25 ALT 29 U/L (0-33) 04/15/22 14:25 Alkaline Phosphatase 73 U/L (35-105) 04/15/22 14:25 Troponin T Baseline 7 ng/L (0-10) 04/15/22 14:25 Troponin T 120 Minute 6.00 ng/L (0-10) 04/15/22 16:58 Delta Troponin T -1.0 ABS# (0-10) L 04/15/22 16:58 NT-Pro-B Natriuret Pep 5 pg/mL (0-125) 04/15/22 14:25 Total Protein 7.3 g/dL (6.6-8.7) 04/15/22 14:25 Albumin 4.3 g/dL (3.5-5.2) 04/15/22 14:25 Globulin 3.0 g/dL (1.3-4.6) 04/15/22 14:25 Discharge Plan Discharge Patient Disposition: Home Clinical Impression: Acute exacerbation of chronic obstructive airways disease Condition: Stable Prescriptions: New amoxicillin-pot clavulanate 875-125 mg tablet 1 tab PO BID Qty: 20 0RF albuterol sulfate 2.5 mg /3 mL (0.083 %) solution for nebulization 2.5 mg inhalation Q4H PRN (Reason: shortness of breath or wheezing) Qty: 90 0RF (DME) nebulizers Misc See Rx Instructions .ROUTE Qty: 1 0RF Rx Instructions: As directed No Action Combivent Respimat 20-100 mcg/actuation mist 1 puff INHALATION QID Flovent HFA 110 mcg/actuation HFA aerosol inhaler 2 puff INHALATION BID pantoprazole [Protonix] 40 mg tablet,delayed release (DR/EC) 40 mg PO BID lisinopril 10 mg tablet 10 mg PO DAILY lidocaine [Lidocaine Pain Relief] 4 % adhesive patch,medicated 1 patch topical BID PRN (Reason: Pain) promethazine-DM 6.25-15 mg/5 mL syrup 10 ml PO Q6H PRN (Reason: Cough) tizanidine 4 mg tablet 6 mg PO QID PRN (Reason: Pain) ondansetron HCl 4 mg tablet 4 mg PO BID PRN (Reason: Nausea And Vomiting) hydrocodone-acetaminophen 10-325 mg tablet 1 tab PO QID PRN (Reason: Pain) Airborne Gummy 250-11.66 mg Tablet,Chewable 1 tab PO DAILY Discharge Orders: Discharge ED (Routine); Ordered 04/15/22 Ordered By: Forest Aviles Referrals: Valdo Alves MD [Primary Care Provider] - Discharge Diet: Usual diet Discharge Activity: Increase activity as tolerated Patient Instructions: COPD (Chronic Obstructive Pulmonary Disease) (ED), How to Use a Nebulizer (ED) Activity Restrictions/Additional Instructions: Thank you for visiting the emergency department. You were seen and evaluated for shortness of breath and cough. The exact cause of your symptoms is unclear though likely related to flareup of underlying lung disease. I will prescribe steroids. Please also use your albuterol nebulizer 1 treatment every 4 hours for 24 hours followed by 1 treatment every 6 hours for 24 hours followed by 1 treatment every 8 hours for 24 hours and then return to the normal schedule. Please follow-up with your primary care provider. Return to the emergency department for worsening symptoms or anything else that you are concerned about a feel needs emergency department evaluation. Coding Level of Care Code ED Furniture Dipper for Felicitas Cesar
[2022-04-15 14:33] LABS: Basophils % 0.5 %; Eosinophils % 0.3 %; Hematocrit 43.5 % (37.0-47.0); Hemoglobin 14.3 g/dL (11.5-15.3); Lymphocytes # 2.7 10^3/uL (0.8-4.8); Lymphocytes % 35.1 %; Mean Corpuscular HGB Conc 32.9 g/dL (30.0-36.0); Mean Corpuscular Hemoglobin 30.3 pg (28.0-34.0); Mean Corpuscular Volume 92.2 fl (81-99); Mean Platelet Volume 9.7 fL (7.4-10.4); Monocytes # 0.8 10^3/uL (0.2-0.9); Monocytes % 11.1 %; Neutrophils # 3.95 10^3/uL (1.8-7.7); Neutrophils % 52.3 %; Nucleated Red Blood Cells % 0 %; Platelet Count 325 10^3/cmm (130-400); Red Blood Count 4.72 10^6/uL (4.1-5.3); Red Cell Distribution Width 13.4 % (12.1-15.1); White Blood Count 7.6 10^3/uL (4.0-10.0)
[2022-04-15 15:05] LABS: Alanine Aminotransferase 29 U/L (0-33); Albumin Level 4.3 g/dL (3.5-5.2); Alkaline Phosphatase 73 U/L (35-105); Anion Gap 19.8 (5-19); Aspartate Amino Transferase 22 U/L (0-32); Blood Urea Nitrogen 15 mg/dL (6-20); Calcium 9.6 mg/dL (8.5-10.5); Carbon Dioxide 20 mmol/L (22-29); Chloride 100 mmol/L (98-107); Glomerular Filtration Rate 73.9 mL/min (90-130); Glucose 93 mg/dL (65-115); Osmolality Calculated 283 mOsm/kg (285-295); Potassium 3.8 mmol/L (3.5-5.1); Sodium 136 mmol/L (136-145); Total Bilirubin 0.3 mg/dL (0.15-1.2); Total Protein 7.3 g/dL (6.6-8.7)
[2022-04-15 15:12] LABS: D Dimer 0.85 ug/mIFEU (0-0.59)
[2022-04-15 15:23] LABS: Troponin(5th) Baseline 7 ng/L (0-10)
[2022-04-15 15:33] LABS: NT Pro B Type Natriuretic Pept 5 pg/mL (0-125)
[2022-04-15 16:05] VITALS: PULSE 91; RESP 16; O2SAT 98
[2022-04-15] MEDS: iohexol 350 mg/mL 500 mL Btl (per mL) IV (16:16)
--- NOTE | 2022-04-15 16:45 | CTR_ITS ---
PROCEDURE INFORMATION: Exam: CTA Chest With Contrast Exam date and time: 04/15/2022 4:42 PM Age: 56 years old Clinical indication: Cough and shortness of breath; Smoker's cough; Additional info: SOB, cough, tachypnea, elevated ddimer TECHNIQUE: Imaging protocol: Computed tomographic angiography of the chest with contrast. 3D rendering (Not supervised by radiologist): MIP and/or 3D reconstructed images were created by the technologist. Radiation optimization: All CT scans at this facility use at least one of these dose optimization techniques: automated exposure control; mA and/or kV adjustment per patient size (includes targeted exams where dose is matched to clinical indication); or iterative reconstruction. Contrast material: OMNIPAQUE 350; Contrast volume: 65 ml; Contrast route: INTRAVENOUS (IV); COMPARISON: CR XR chest 1V portable [id number] 04/15/2022 1:18 PM RADIATION DOSE METRICS: Total DLP (mGy-cm): 406.29 FINDINGS: Pulmonary arteries: Normal. No pulmonary emboli. Aorta: Unremarkable. No aortic aneurysm. No aortic dissection. Lungs: Unremarkable. No consolidation. No masses. Pleural spaces: Unremarkable. No pneumothorax. No pleural effusion. Heart: Heart is normal size. Coronary arteries: There is severe atherosclerotic calcification of the coronary arteries. Lymph nodes: There are mildly prominent paratracheal lymph nodes measuring up to 12 x 14 mm, some of which are calcified. Bones/joints: Unremarkable. No acute fracture. Soft tissues: Unremarkable. CT/CT angio chest PE protcl [id number] IMPRESSION: No evidence of pulmonary embolism.
--- NOTE | 2022-04-15 17:05 | ECG_ITS ---
[facility] Test Date: 2022-04-15 Pat Name: Mehnaz Martínez Department: Room: Gender: Female Lab Engineer: : [id number] Requested By: Forest Aviles Order Number: [id number] Elder MD: Daniel Tilley M.D. Measurements Intervals [place] Rate: 82 P: 10 NE: 160 QRS: 92 QRSD: 85 T: 8 QT: 387 QTc: 454 Interpretive Statements SINUS RHYTHM BORDERLINE RIGHT AXIS DEVIATION [QRS AXIS > 90] No previous ECG available for comparison Electronically Signed On 04-15-2022 19:05:36 [employer] by Daniel Tilley M.D. [id number]
--- NOTE | 2022-04-15 17:17 | PC.NURSE ---
Pt refusing vital signs. Pt getting out of bed without assistance. Pt advised not to get out of bed without assistance and to use call light when needing to go to bathroom.
[2022-04-15 17:28] VITALS: PULSE 91; RESP 16; O2SAT 98
[2022-04-15] MEDS: ipratropium-albuterol 3 mL Neb INHALATION (17:28)
[2022-04-15 17:34] VITALS: PULSE 91; RESP 16; O2SAT 98
[2022-04-15 18:21] VITALS: BP 136/92; PULSE 94; RESP 16; O2SAT 98
--- NOTE | 2022-05-09 10:47 | DCPLANNER ---
virtual classroom manager was asked to pre certify nebulizer for patient. Patient was approved, Pre-Cert number assigned: [id number]
== END 2022-04-15 18:22 | disposition home or self-care (01) ==
PROVIDERS: Emergency Provider Emergency Medicine; PCP Family Medicine
DX: J44.1 Chronic obstructive pulmonary disease with (acute) exacerbation (principal); I10 Essential (primary) hypertension; F17.210 Nicotine dependence, cigarettes, uncomplicated
CPT/HCPCS: 36415; 71045; 71275; 80053; 83880; 84484; 85025; 85378; 93005; 94640; 99285; Q9967

== ENCOUNTER 2023-07-21 12:13 | Outpatient (CLI) | payer MEDICAID, SELFPAY ==
--- NOTE | 2023-07-21 12:26 | XR_ITS ---
WS: [id number] DEXA (DUAL ENERGY X-RAY ABSORPTIOMETRY) Bone mineral density was performed using a [employer] machine. HISTORY: POSTMENOPAUSAL COMPARISON: None available. Lumbar spine BMD (L1-L4): 1.057 g/cm2 T score: -1.0 Z score: -0.8 Total hip BMD: Left: 0.898 g/cm2. T score: -0.9 Z score: -0.6 Right: 0.874 g/cm2. T score: -1.1 Z score: -0.8 10 year probability of a major osteoporotic fracture is 27.3% IMPRESSION: OSTEOPENIA based upon the WHO classification for females.
== END 2023-07-21 12:14 | disposition home or self-care (01) ==
LOC: RAD 12:13
PROVIDERS: PCP Family Medicine; Visit Provider Family Medicine
DX: Z78.0 Asymptomatic menopausal state (principal); M85.80 Other specified disorders of bone density and structure, unspecified site
CPT/HCPCS: 77080

== ENCOUNTER 2024-01-06 07:18 | Outpatient (CLI) | payer MEDICAID, SELFPAY ==
--- NOTE | 2024-01-06 07:27 | MR_ITS ---
WS: [id number] MRI RIGHT SHOULDER HISTORY: R SHOULDER PAIN COMPARISON: None available. TECHNIQUE: Multiplanar sequences of the shoulder joint are submitted. Moderate AC joint arthropathy. AC joint is narrowed with osteophyte and soft tissue hypertrophy. Ther e is a very small amount of fluid in the subdeltoid bursa. Moderate subacromial impingement by downsl oping acromion. The acromion contacts and deforms the supraspinatus tendon over the humeral head. Bic eps tendon remains in good position. No os acromion. There is very slight posterior subluxation of the humeral head noted. There is mild widening of the a nterior joint space. No rotator cuff muscle atrophy or edema. Small insertion site tear of the supras pinatus tendon distally. The tear extends along the distal tendon. There is fluid extending through t he distal tendon. As visualized the labrum appears intact. Within the joint space there is a area of decreased signal which persists most of the sequences. This is also the area of asymmetric widening of the glenohumeral joint. I suspect this could be a small l oose body. Donor site is not identified. Middle glenohumeral ligament is not visualized very well. MR/MR shoulder RT wo con* [id number] IMPRESSION: 1. Moderate subacromial impingement upon the distal supraspinatus tendon. 2. Moderate AC joint arthritis. 3. Insertion site tear supraspinatus with tear extending interstitially along the tendon. 4. Asymmetric widening of the anterior glenohumeral joint. There is increased soft tissue within the anterior joint space. I suspect there may be a small loo se body or fragment causing the separation. The middle glenohumeral ligament is poorly visualized. This soft tissue could potentially be a ruptured middle gle nohumeral ligament displaced into the joint.
== END 2024-01-06 07:19 | disposition home or self-care (01) ==
PROVIDERS: PCP Family Medicine; Visit Provider Family Medicine
DX: M19.011 Primary osteoarthritis, right shoulder (principal); M75.101 Unspecified rotator cuff tear or rupture of right shoulder, not specified as traumatic
CPT/HCPCS: 73221

== ENCOUNTER → 2024-02-02 08:35 | Outpatient (BNVA) | payer MEDICAID, SELFPAY | PROVIDERS: PCP Family Medicine; Referring Provider Family Medicine; Visit Provider Specialist | DX: M25.511 Pain in right shoulder (principal); M79.89 Other specified soft tissue disorders | CPT/HCPCS: 73030 ==

== ENCOUNTER 2024-04-01 07:15 | Outpatient (CLI) | payer MEDICAID, SELFPAY ==
--- NOTE | 2024-04-01 07:21 | MR_ITS ---
WS: [id number] MRI RIGHT SHOULDER ARTHROGRAM HISTORY: R SHOULDER PAIN COMPARISON: 01/06/2024 TECHNIQUE: Pre and postcontrast imaging. Gadolinium mixture was injected under fluoroscopy. Coronal T 1 fat sat, sagittal T2 fat sat, coronal T2 fat sat, axial proton density, axial T1 nonfat saturation are submitted. Good contrast injection into the shoulder joint. There is some contrast extending external to the jett nt into the subacromial and subdeltoid bursa. No full-thickness rotator cuff tear is identified. This may be contrast that is external to the joint due to the injection. There is marked thickening of the rotator cuff interval and the coracohumeral ligament. Contrast is n oted extending through the rotator cuff interval external to the joint space. Suspect injury of the r otator cuff interval. Heterogeneous, amorphous signal through the coracohumeral ligament can be seen with adhesive capsulitis. 6 mm ovoid hypodense intense loose body is noted adjacent to the subscapularis tendon. The middle gle nohumeral ligament is noted traversing adjacent to the subscapularis tendon. The middle glenohumeral ligament is very small caliber but it does appear to be intact. Previously described soft tissue in the glenohumeral joint on the prior study of 01/06/2024 is no long er present. The humeral head is now more appropriately positioned within the glenoid suggesting there is no longer displacement or loose body causing the displacement and mild subluxation. No definite labral tear is identified. MR/MR shoulder RT wo/w con [id number] IMPRESSION: 1. Previously described soft tissue in the glenohumeral joint is no longer pre sent. The position of the humeral head in the glenoid is much improved and ther e is no longer asymmetry. 2. There is now a loose body measuring 6 mm adjacent to the subscapularis tend on. For reference this loose body is opposite the subscapularis tendon from the middle glenohumeral ligament. 3. The middle glenohumeral ligament is identified by a very small caliber. 4. Injected contrast extends through the rotator cuff interval into the subacr omial and subdeltoid bursa. 5. No labral tear identified. 6. No full-thickness rotator cuff tendon tear identified. 7. Suspect rotator cuff injury as contrast extends to the rotator cuff interva l. There is also a thickening of the coracohumeral ligament and findings suspic ious for adhesive capsulitis.
--- NOTE | 2024-04-01 08:00 | IR_ITS ---
WS: [id number] RIGHT SHOULDER ARTHROGRAM UNDER FLUOROSCOPY. PRIOR TO MRI EVALUATION. HISTORY: right shoulder pain COMPARISON: Prior MRI 01/06/2024 FLUOROSCOPY TIME: 1min [id number] # of spot films: 2 Procedure, risks and complications were explained to the patient. Consent has been obtained. Under fluoroscopic guidance the skin is marked over the medial superior third of the humeral head, cl eansed with ChloraPrep and anesthetized with lidocaine. 22-gauge spinal needle is inserted to the cor fran of the humeral head. Test injection with Omnipaque reveals the needle is appropriately positioned in the joint. A mixture of 10 cc sterile saline, 5 cc Omnipaque and 0.1 mmol gadolinium are injected under fluoroscopic guidance. Patient tolerated the joint distention well. No complications. Good contrast opacification of the joint space. IR/IR arthrogram shoulderRT [id number] IMPRESSION: Uncomplicated RIGHT shoulder joint injection prior to MRI.
[2024-04-01] MEDS: gadobenate dimeglumine 20 mL vial IV (10:01)
[2024-04-01] MEDS: iohexol 240 mg/mL 50 mL Btl 20 ML INTRA-ARTI (10:02)
== END 2024-04-01 07:16 | disposition home or self-care (01) ==
PROVIDERS: PCP Family Medicine; Visit Provider Specialist
DX: S43.421A Sprain of right rotator cuff capsule, initial encounter (principal); M24.011 Loose body in right shoulder; X58.XXXA Exposure to other specified factors, initial encounter
CPT/HCPCS: 23350; 73223; 77002; A9577

== ENCOUNTER → 2024-04-26 09:54 | Outpatient (BNVA) | payer MEDICAID, SELFPAY | PROVIDERS: PCP Family Medicine; Visit Provider Specialist | DX: M25.511 Pain in right shoulder (principal) | CPT/HCPCS: 99214 ==